=== PATIENT | male | born 1935 | race Caucasian/White ===

== ENCOUNTER → 2016-08-12 | Outpatient (CLI) | payer MEDICARE, OTHER ==
[2016-08-12 16:32] LABS: ALBUMIN 4.2 g/dL (3.4-5.0); ANION GAP 16.7 MEQ/L (3-15); CALCULATED IONIZED CALCIUM 3.9 mg/dL (3.8-4.6); TOTAL PROTEIN 7.7 g/dL (6.4-8.5)
== END ==
LOC: LAB 15:51
PROVIDERS: ATTEND Family Medicine
DX: E11.65 Type 2 diabetes mellitus with hyperglycemia (principal); R79.89 Other specified abnormal findings of blood chemistry
CPT/HCPCS: 36415; 80053; 82043; 83036

== ENCOUNTER 2016-09-10 14:33 | Emergency (ER) | payer MEDICARE, OTHER ==
[~2016-09-10] VITALS: Ht 190.5 cm; Wt 104.0 kg
[~2016-09-10 14:33] MED LIST: AMOX1TAB12 PO; ASPI-345 PO; CEPH-507 PO; EZET1TAB6 PO; FRSM20T PO; FRSM40T PO; GLIP5TAB13 PO; HCT25T PO; LEVO100T PO; [UNRECOGNIZED DRUG - OTHER]; [UNRECOGNIZED DRUG - OTHER] PO
--- OUTSIDE RECORDS SUMMARY | 2016-09-10 14:36 | XMS REPORT | Continuity of Care Document ---
Author Author [facility] Address Unknown Phone Unavailable Care Team Providers Care Zyglo Technician Name Role Phone BRISA AGEE MD PCP [phone] Insurance Providers Payer Name Policy Number Subscriber Name Relationship Medicare A And B [id number] Simi Strickland 18 Self / Same As Patient Other1 [id number] Simi Strickland 18 Self / Same As Patient Advance Directives Directive Response Recorded Date/Time Advanced Directives Yes 02/26/16 11:25am Chief Complaint and Reason for Visit Chief Complaint Respiratory Complaint Reason for Visit Atrial fibrillation Congestive heart failure Problems Active Problems Medical Problem Onset Date Status Atrial fibrillation Unknown Acute Cellulitis Unknown Acute Congestive heart failure Unknown Acute Diabetes mellitus type 2 01/02/2012 Acute Infection of skin Unknown Acute Medications Current Home Medications Medication Dose Units Route Directions Days/Qty Instructions Start Date [Dilitazem] 240 Mg 240 Mg ORAL Daily 01/02/12 Glipizide (Glucotrol) 5 Mg 5 Mg ORAL Twice A Day 01/02/12 Aspirin 81 Mg 81 Mg ORAL Daily 01/02/12 Levothyroxine Sodium 100 Mcg 100 Mcg ORAL Daily 01/02/12 [Bioptic S] 2 Drops Twice A Day 01/02/12 Furosemide 40 Mg 40 Mg ORAL Daily 02/26/16 Past Home Medications Medication Directions Ordered Status Hydrochlorothiazide 25 Mg Tablet, 25 Mg Oral Daily 01/02/12 Discontinued Ezetimibe/Simvastatin 1 Each Tablet, Oral Daily 01/02/12 Discontinued Furosemide 20 Mg Tab, 20 Mg Oral As Needed 01/02/12 Discontinued Cephalexin 500 Mg Capsule, 500 Mg Oral Three Times A Day 01/02/12 Discontinued Amoxicillin/Clavulanate Potassium 1 Each Tablet, 1 Tab Oral Twice A Day for Infection 12/21/15 Discontinued Social History Query Response Start Date Stop Date Smoking Status Former smoker Hospital Discharge Instructions No hospital discharge instructions. Plan of Care Discharge Date 02/26/16 1:27pm Disposition 01 HOME OR SELF-CARE Condition at Discharge Stable Instructions/Education Provided Congestive Heart Failure (GEN) Prescriptions See Medication Section Referrals BRISA AGEE MD - Additional Instructions/Education taken additional water pill for 2 extra days. Follow-up with her family physicia 2-3 days Continue all medications as directed Some of your test results may not be complete prior to your leaving the Emergency Department. The Emergency Department is not authorized to give test results over the phone. Please contact the doctor's office listed in this packet of information for your final results. Follow up with your primary care physician or return to the Emergency Department for worsening or worrisome symptoms. * Emergency Department phone number: [phone], x [phone]* MEDICAL RECORD If you need copies of your X-rays, call [phone]. If you need copies of your medical record, including lab results, a signed authorization for release of records will be required. A telephone call for release of Health Information is not allowed. BILLING Billing can sometimes be confusing and frustrating. To help avoid confusion in the future, please take a moment to acquaint yourself with the billing parties for services. SERVICE BILLING LIBERTARIAN Emergency Room Services [facility] Physician Services [facility] X-rays [facility] Patients will receive bills for services from the appropriate provider. If you have any questions about your [facility] bill, our staff will be happy to assist you. Please call [phone], and ask for the billing department. THANK YOU for choosing [facility] as your emergency care provider! Care Plan and Goals ~~Discharge Care Plan~~ Problem: Breathing difficulty Goal: Able to breathe without shortness of air and perform usual activities. Instructions: Take medication(s) as directed. Follow physician discharge instructions. Follow up with primary care physician as directed. Use inhalers as needed. Functional Status No functional status results. Allergies, Adverse Reactions, Alerts No known allergies. Immunizations No immunization records. Vital Signs Acute Vital Signs Vital Response Date/Time Temperature (Fahrenheit) 97.3 02/26/2016 12:50pm Pulse 104 bpm 02/26/2016 12:50pm Respirations 20 02/26/2016 12:50pm Height 6 ft 3 in Weight 240 lb Body Mass Index 30.0 kg/m^2 Results Laboratory Results Test Name Result Units Flags Reference Collection Date/Time Result Date/ Time Comments White Blood Count 6.55 10^3uL 4.0-11.0 02/19/2016 2:55pm 02/19/2016 3: 12pm Red Blood Count 3.64 10^6uL L 4.50-5.50 02/19/2016 2:55pm 02/19/2016 3: 12pm Hemoglobin 11.3 g/dL L 13.5-17.0 02/19/2016 2:55pm 02/19/2016 3:12pm Hematocrit 34.10 % L 39.00-50.00 02/19/2016 2:55pm 02/19/2016 3:12pm Mean Corpuscular Volume 94 FL 80-100 02/19/2016 2:55pm 02/19/2016 3: 12pm Mean Corpuscular Hemoglobin 31.0 PG 26.0-34.0 02/19/2016 2:55pm 2015 3:12pm Mean Corpuscular Hemoglobin Concent 33.1 g/dL 31.0-37.0 02/19/2016 2: 55pm 02/19/2016 3:12pm Red Cell Distribution Width 13.8 % 11.8-15.6 02/19/2016 2:55pm 2015 3:12pm Platelet Count 237 10^3uL 150-450 02/19/2016 2:55pm 02/19/2016 3:12pm Mean Platelet Volume 9.9 FL H 6.0-9.5 02/19/2016 2:55pm 02/19/2016 3: 12pm Neutrophils (%) (Auto) 76 % H 51-67 02/19/2016 2:55pm 02/19/2016 3:12pm Lymphocytes (%) (Auto) 13 % L 20-46 02/19/2016 2:55pm 02/19/2016 3:12pm Monocytes (%) (Auto) 10 % 3-11 02/19/2016 2:55pm 02/19/2016 3:12pm Eosinophils (%) (Auto) 1 % 0-4 02/19/2016 2:55pm 02/19/2016 3:12pm Basophils (%) (Auto) 1 % 0-2 02/19/2016 2:55pm 02/19/2016 3:12pm Neutrophils # (Auto) 5.0 X10^3 02/19/2016 2:55pm 02/19/2016 3:12pm Lymphocytes # (Auto) 0.8 X10^3 02/19/2016 2:55pm 02/19/2016 3:12pm Monocytes # (Auto) 0.7 X10^3 02/19/2016 2:55pm 02/19/2016 3:12pm Eosinophils # (Auto) 0.1 10^3uL 02/19/2016 2:55pm 02/19/2016 3:12pm Basophils # (Auto) 0.0 10^3uL 02/19/2016 2:55pm 02/19/2016 3:12pm Sodium Level 146 mmol/L 135-150 02/19/2016 2:55pm 02/19/2016 3:26pm Potassium Level 4.7 mmol/L 3.5-5.1 02/19/2016 2:55pm 02/19/2016 3:26pm Chloride Level 106 mmol/L 98-108 02/19/2016 2:55pm 02/19/2016 3:26pm Carbon Dioxide Level 26 mmol/L 22-29 02/19/2016 2:55pm 02/19/2016 3: 26pm Anion Gap 19.0 MEQ/L H 3-15 02/19/2016 2:55pm 02/19/2016 3:26pm Blood Urea Nitrogen 36 mg/dL H 7-18 02/19/2016 2:55pm 02/19/2016 3:26pm Creatinine 1.61 mg/dL H 0.8-1.5 02/19/2016 2:55pm 02/19/2016 3:26pm BUN/Creatinine Ratio 22 H 10-20 02/19/2016 2:55pm 02/19/2016 3:26pm Estimat Glomerular Filtration Rate 50.5 02/19/2016 2:55pm 2015 3:26pm Estimated GFR (Non- 41.7 02/19/2016 2:55pm 2015 3:26pm Glucose Level 116 mg/dL H 70-110 02/19/2016 2:55pm 02/19/2016 3:26pm Calcium Level 8.9 mg/dL 8.8-10.8 02/19/2016 2:55pm 02/19/2016 3:26pm Thyroid Stimulating Hormone (TSH) 2.75 uIU/mL # 0.46-4.68 02/19/2016 2: 55pm 02/19/2016 3:55pm Thyroxine (T4) 6.0 ug/dL 4.8-11.7 02/19/2016 2:55pm 02/19/2016 8:42pm Pending Laboratory Results Test Name Collection Date/Time Procedures No known history of procedures. Encounters Encounter Location Arrival/Admit Date Discharge/Depart Date Attending Provider Departed Emergency Room [facility] 02/26/16 11:13am 02/26/16 1:27pm LIA MCDONOUGH MD Registered Clinic [facility] 02/19/16 2:38pm BRISA AGEE MD Recent Diagnosis
[2016-09-10 14:44] VITALS: BP 162/96
[2016-09-10] MEDS ORDERED: [UNRECOGNIZED DRUG - CODE] PO (14:48)
[2016-09-10] MEDS ORDERED: PREG25CA PO (14:48)
--- NOTE | 2016-09-10 16:40 | Diagnostic Imaging Report ---
INDICATION: Fall. FINDINGS: Left hip shows compression screw within the femoral head and neck in good position. There is no evidence of hardware loosening or fracture. No cortical bony fractures are present. The femoral head is in normal articulation with the acetabulum. IMPRESSION: Compression screw present with no acute fractures demonstrated. Dictated by: Dictated on workstation # [id number]
--- NOTE | 2016-09-10 16:41 | Diagnostic Imaging Report ---
INDICATION: Fall. FINDINGS: AP pelvis shows SI joints to be sclerotic and symmetrical. Pubic symphysis is in good alignment. There are no fractures within the pelvis. The femoral heads are in normal articulation with the acetabula. Advanced degenerative changes noted of the lower lumbosacral spine. IMPRESSION: No acute abnormalities demonstrated. Dictated by: Dictated on workstation # [id number]
--- NOTE | 2016-09-10 16:56 | NUR ---
[facility] HAS CONTACTED FAMILY FOR RIDE HOME.
--- NOTE | 2016-09-10 17:13 | NUR ---
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 Pt tolerated well.
== END 2016-09-10 17:13 | disposition home or self-care (01) ==
LOC: ED 14:35
DX: S70.02XA Contusion of left hip, initial encounter (principal); S20.212A Contusion of left front wall of thorax, initial encounter; V00.811A Fall from moving wheelchair (powered), initial encounter; Y93.89 Activity, other specified; Y92.480 Sidewalk as the place of occurrence of the external cause
CPT/HCPCS: 72170; 73502; 99282

== ENCOUNTER → 2016-09-10 | Outpatient (CLI) | payer MEDICARE, OTHER | LOC: EMS 14:13 | DX: Z53.20 Procedure and treatment not carried out because of patient's decision for unspecified reasons (principal) ==